=== PATIENT | male | born 1985 | race African-American/Black ===

== ENCOUNTER 2018-12-30 12:08 | Emergency (ER) | payer SELFPAY ==
[~2018-12-30] VITALS: Ht 177.8 cm; Wt 68.0 kg
[2018-12-30] MEDS ORDERED: PENICILLIN V P500 MG PO (13:09)
== END 2018-12-30 13:22 | disposition home or self-care (01) ==
LOC: ED 12:08
DX: K04.7 Periapical abscess without sinus (principal); F17.200 Nicotine dependence, unspecified, uncomplicated
CPT/HCPCS: 99282